=== PATIENT | male | born 1950 | race Caucasian/White ===

== ENCOUNTER → 2016-03-14 | Outpatient (CLI) | payer BC, OTHER ==
[~2016-03-14] MED LIST: ASPI81TA85 PO; CIPR500S PO; COLA100C PO; COUM10TA PO; FERR240T PO; FOLI1TAB2 PO; FURO40TA2 PO; INSULANT SC; METF1000 PO; METO-346 PO; PERC5TAB6 PO; POTA10TA34 PO; PRAV40TA2 PO; SYNT100T PO; TYLE325T5 PO; VITA500C24 PO
[2016-03-14 13:08] LABS: INR 2.86
== END ==
LOC: M WUC 10:17
PROVIDERS: ATTEND Nurse Practitioner Family
DX: Z95.2 Presence of prosthetic heart valve (principal)

== ENCOUNTER → 2016-09-15 | Outpatient (REF) | payer OTHER ==
[~2016-09-15] MED LIST changes: -COLA100C PO; +COLA100C5 PO; -FOLI1TAB2 PO; +FOLI1TAB4 PO; +GLIM2TAB PO; -METF1000 PO; +METF10004 PO; +PERC5TAB12 PO; -PERC5TAB6 PO; -POTA10TA34 PO; +POTA10TA67 PO; +SITA50TAB PO
== END ==
LOC: M LAB REF 12:50
PROVIDERS: ATTEND Internal Medicine Nephrology
DX: N39.0 Urinary tract infection, site not specified (principal)

== ENCOUNTER → 2016-09-23 | Outpatient (REF) | payer OTHER | LOC: M LABDRAWP 12:06 | PROVIDERS: ATTEND Family Medicine | DX: D48.5 Neoplasm of uncertain behavior of skin (principal); D23.62 Other benign neoplasm of skin of left upper limb, including shoulder ==

== ENCOUNTER 2016-12-20 21:09 | Emergency (ER) | payer MEDICARE, BC, OTHER ==
[~2016-12-20] VITALS: Ht 170.2 cm; Wt 127.3 kg
[~2016-12-20 21:09] MED LIST changes: -GLIM2TAB PO; -SITA50TAB PO
[2016-12-20] MEDS ORDERED: GLIM2TAB PO (21:32)
[2016-12-20] MEDS ORDERED: SITA50TAB PO (21:32)
[2016-12-20 22:25] LABS: INR 3.09
[2016-12-20 23:37] VITALS: BP 106/64
== END 2016-12-20 23:41 | disposition home or self-care (01) ==
LOC: M ED 21:09
DX: H95.42 Postprocedural hemorrhage of ear and mastoid process following other procedure (principal); Z95.2 Presence of prosthetic heart valve; Z79.01 Long term (current) use of anticoagulants

== ENCOUNTER → 2017-03-06 | Outpatient (REF) | payer MEDICARE, OTHER | LOC: M LAB REF 13:55 | DX: N39.0 Urinary tract infection, site not specified (principal) | CPT/HCPCS: 87088; 87186 ==

== ENCOUNTER → 2017-04-24 | Outpatient (REF) | payer MEDICARE, OTHER | LOC: M LAB REF 13:25 | DX: N39.0 Urinary tract infection, site not specified (principal) | CPT/HCPCS: 87086 ==

== ENCOUNTER 2020-01-27 13:11 | Emergency (ER) | payer MEDICARE, BC, OTHER ==
[~2020-01-27 13:11] MED LIST changes: -ASPI81TA85 PO; +ASPI81TA86 PO; +FOLI1TAB11 PO; -FOLI1TAB4 PO; +GLIM2TAB4 PO; +SITA50TAB PO
[2020-01-27] MEDS ORDERED: SODIUM BICARBONATE 8.4% INJ 50 ML SYRINGE ONE (13:12)
[2020-01-27] MEDS ORDERED: LIDOCAINE 2% INJ 100 MG/5 ML SYRINGE ONE (13:12)
[2020-01-27] MEDS ORDERED: EPINEPHrine 1MG/10ML SYRINGE 1.5IN ONE (13:12)
[2020-01-27] MEDS ORDERED: CALCIUM CHLORIDE 10% 1 GM/10 ML SYR ONE (13:12)
[2020-01-27] MEDS ORDERED: SODIUM BICARBONATE 8.4% INJ 50 ML SYRINGE IV STA ×2 (13:22→15:46)
[2020-01-27 13:26] VITALS: BP 119/78
[2020-01-27 14:10] LABS: HEMOGLOBIN 10.8 g/dl (13.5-17.5); MEAN CORPUSCULAR HEMOGLOBIN 30.3 pg (27.0-33.0); MEAN CORPUSCULAR HGB CONC 30.9 g/dl (32.0-36.5); PLATELET COUNT, AUTOMATED 162 10^3/uL (150-450); RED BLOOD COUNT 3.57 10^6/uL (4.30-6.10); WHITE BLOOD COUNT 10.9 10^3/uL (4.0-10.0)
[2020-01-27 14:29] LABS: INR 3.52; PROTHROMBIN TIME 36.1 SECONDS (12.5-14.3)
[2020-01-27 14:30] LABS: PARTIAL THROMBOPLASTIN TIME 52.8 SECONDS (24.2-38.5)
[2020-01-27 14:49] LABS: ALBUMIN 2.4 GM/DL (3.2-5.2); BILIRUBIN,DIRECT 0.1 MG/DL (0.0-0.2); BILIRUBIN,TOTAL 0.3 MG/DL (0.2-1.0); CALCIUM LEVEL 8.3 MG/DL (8.8-10.2); CK-MB VALUE MASS 8.5 NG/ML (<3.6); CREATININE FOR GFR 2.13 MG/DL (0.70-1.30); EOSINOPHILS 6 % (0-3); GLOMERULAR FILTRATION RATE 33.1 (>49); LYMPHOCYTES 19 % (16-44); MAGNESIUM LEVEL 2.3 MG/DL (1.8-2.4); MB/CK RELATIVE INDEX 3.88 (< OR =4); METAMYELOCYTES 1 % (0-0); MONOCYTES 2 % (0-5); MYELOCYTES 1 % (0-0); NEUTROPHILS 61 % (28-66); PHOSPHORUS LEVEL 8.2 MG/DL (2.5-4.9); POTASSIUM SERUM 4.3 MEQ/L (3.5-5.1); TROPONIN I 0.58 NG/ML (< 0.10)
[2020-01-27 14:50] LABS: HYPOCHROMASIA 1+; PLATELET ESTIMATE NORMAL (NORMAL)
[2020-01-27 14:54] LABS: D-DIMER QUANT > 4000 ng/ml (<500)
--- NOTE | 2020-01-27 15:01 | REP ---
INDICATION: CHEST PAIN. COMPARISON: Comparison chest x-ray June 23, 2015. TECHNIQUE: Portable supine AP radiograph. FINDINGS: Endotracheal tube is noted in place in good position at the level of the aortic knob. NG tube is seen coursing through the mediastinum towards the left upper quadrant. Its tip is not visualized. The patient is status post median sternotomy and aortic valve replacement. A bipolar pacemaker is seen in the right heart view of the left side. Monitoring electrodes are noted. In the lung crockett. There is a diffuse alveolar pattern of increased density in the perihilar distribution bilaterally consistent with acute pulmonary edema. No pleural effusion is seen. IMPRESSION: Endotracheal tube in good position. NG tube is visualized in the mediastinum although its tip is not visible. There is a diffuse moderate alveolar pulmonary edema pattern. Patient status post aortic valve replacement with pacemaker. <Electronically signed by Armin Celis > 01/27/20 [id number]
[2020-01-27] MEDS ORDERED: EPINEPHrine 1MG/10ML SYRINGE 1.5IN IV STA ×2 (15:46)
[2020-01-27] MEDS ORDERED: CALCIUM CHLORIDE 10% 1 GM/10 ML SYR IV STA (16:17)
[2020-01-27] MEDS ORDERED: LIDOCAINE 2% INJ 100 MG/5 ML SYRINGE IV STA (16:18)
--- NOTE | 2020-01-27 19:17 | ECGEPIP ---
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
== END 2020-01-27 17:18 | disposition expired ==
LOC: M ED 13:11
DX: I46.9 Cardiac arrest, cause unspecified (principal); Z95.0 Presence of cardiac pacemaker; I25.2 Old myocardial infarction; E11.9 Type 2 diabetes mellitus without complications; E78.5 Hyperlipidemia, unspecified; J45.909 Unspecified asthma, uncomplicated; E03.9 Hypothyroidism, unspecified; Z85.828 Personal history of other malignant neoplasm of skin; Z95.4 Presence of other heart-valve replacement; Z79.82 Long term (current) use of aspirin; Z79.01 Long term (current) use of anticoagulants; Z79.84 Long term (current) use of oral hypoglycemic drugs; Z79.899 Other long term (current) drug therapy; Z88.0 Allergy status to penicillin
CPT/HCPCS: 31500; 36556; 71045; 80048; 80076; 82150; 82550; 82553; 82803; 83605; 83690; 83735; 84100; 84484; 85025; 85379; 85610; 85730; 87040; 92950; 93005; 93041; 96374; 96375; 96376; 99291; U0002